=== PATIENT | male | born 1955 | race Caucasian/White ===

== ENCOUNTER 2016-12-23 20:38 | Emergency (ER) | payer OTHER ==
[2016-12-23 20:42] VITALS: BP 119/68; PULSE 79; TEMP 97.6; BMI 27.3
[2016-12-23] MEDS ORDERED: AMOXICILLIN 500 MG CAPSULE (FP) PO ONE (21:25)
[2016-12-23] MEDS ORDERED: IBUPROFEN 600 MG TABLET (FP) PO ONE ×2 (21:26→21:28)
[2016-12-23] MEDS ORDERED: AMOX TR/POT CLAV 500MG/125MG TABLETS (FP) ONE (21:28)
--- NOTE | 2016-12-23 21:31 | PDOC ---
History of Present Illness - General Chief Complaint: Ear Problem Stated Complaint: EAR PAIN Time Seen by Provider: 12/23/16 21:05 History Source: Patient Exam Limitations: No Limitations - History of Present Illness Initial Comments: 12/23/16 21:25 61 yr male with left ear pain for one week with drainage today. no fever or chills 12/23/16 21:26 Past History - Past Medical History Allergies/Adverse Reactions: Allergies Allergy/AdvReac Type Severity Reaction Status Date / Time No Known Allergies Allergy Verified 12/23/16 20:42 Home Medications: Ambulatory Orders Simvastatin [Zocor -] 40 mg PO HS 05/23/15 Tamsulosin HCl [Flomax -] 0.4 mg PO DAILY 05/23/15 Docusate Sodium 300 mg PO HS 12/12/15 Hydrocortisone Acetate [Anusol Hc Suppository -] 25 mg RC DAILY #14 supp.rect Amoxicillin - [Amoxicillin 500mg Capsule -] 500 mg PO BID #20 capsule 12/23/16 Ciprofloxacin HCl/Dexameth [Ciprodex Otic Suspension] 4 drop BID #1 bottle Cancer: Yes (PROSTATE) GI Disorders: Yes (GERD) Disorders: Yes (PROSTATE CA) - Surgical History Abdominal Surgery: Yes Cholecystectomy: Yes - Reproductive History Testicular CA: No (prostate) - Immunization History Immunization Up to Date: Yes - Psycho/Social/Smoking Cessation Hx Anxiety: No Suicidal Ideation: No Smoking History: Never smoked Have you smoked in the past 12 months: No Hx Alcohol Use: No Drug/Substance Use Hx: No Substance Use Type: None Hx Substance Use Treatment: No Review of Systems - Review of Systems Able to Perform ROS?: Yes Is the patient limited Georgian proficient: No Constitutional: No: Symptoms Reported HEENTM: Yes: See HPI Respiratory: No: Symptoms reported *Physical Exam - Vital Signs Last Vital Signs Temp Pulse Resp BP Pulse Ox 97.6 F 79 18 119/68 99 12/23/16 20:39 12/23/16 20:39 12/23/16 20:39 12/23/16 20:39 12/23/16 20:39 - Physical Exam General Appearance: Yes: Nourished, Appropriately Dressed HEENT: positive: EOMI, NIA, TM Dull (left with drainage, inflamed canal ). negative: Pharyngeal Erythema, Tonsillar Exudate, Tonsillar Erythema Respiratory/Chest: positive: Lungs Clear, Normal Breath Sounds Cardiovascular: positive: Regular Rhythm, Regular Rate Gastrointestinal/Abdominal: positive: Normal Bowel Sounds, Soft Musculoskeletal: positive: Normal Inspection Extremity: positive: Normal Capillary Refill, Normal Inspection, Normal Range of Motion Integumentary: positive: Normal Color, Dry, Warm Neurologic: positive: Fully Oriented, Alert, Normal Mood/Affect, Normal Response , Motor Strength 5/5 Medical Decision Making - Medical Decision Making 12/23/16 21:27 cc: left ear pain with drainage one week pain no fever or chills on flomax for prostate cancer (finished radiation treatment) will prescribe amox and ciprodex drops 12/23/16 21:28 *DC/Admit/Observation/Transfer Diagnosis at time of Disposition: Acute otitis media Qualifiers: Otitis media type: suppurative Laterality: left Recurrence: not specified as recurrent Spontaneous tympanic membrane rupture: with spontaneous rupture Qualified Code(s): H66.012 - Acute suppurative otitis media with spontaneous rupture of ear drum, left ear - Discharge Dispostion Disposition: HOME Condition at time of disposition: Good - Prescriptions Prescriptions: Amoxicillin - [Amoxicillin 500mg Capsule -] 500 mg PO BID #20 capsule Ciprofloxacin HCl/Dexameth [Ciprodex Otic Suspension] 4 drop BID #1 bottle - Patient Instructions Additional Instructions: follow with the ENT doctor for follow up next week call Sunday to make appointment use the ear drops as prescribed no water or Qtips in the ears take the Amoxicllin as directed for 10 days take motrin 600mg every 6hrs for pain (over the counter advil or motrin) Return to ER if worse
== END 2016-12-23 21:54 | disposition home or self-care (01) ==
LOC: JERFT 20:38
DX: H66.012 Acute suppurative otitis media with spontaneous rupture of ear drum, left ear (principal); Z85.46 Personal history of malignant neoplasm of prostate; K21.9 Gastro-esophageal reflux disease without esophagitis
CPT/HCPCS: 99281-25

== ENCOUNTER 2017-03-06 20:29 | Emergency (ER) | payer OTHER ==
--- NOTE | 2017-03-06 20:51 | PDOC ---
Rapid Medical Evaluation Time Seen by Provider: 03/06/17 20:43 Medical Evaluation: Allergies Allergy/AdvReac Type Severity Reaction Status Date / Time No Known Allergies Allergy Verified 12/23/16 20:42 03/06/17 20:47 I have performed a brief in-person evaluation of this patient. ([employer] [facility] ) o The patient presents with a chief complaint of: Headache, Pain to the frontal sinuses. o Pertinent physical exam findings: + Frontal sinus pressure and pain. o I have ordered the following: Evaluation in fast track o The patient will proceed to the ED for further evaluation.
[2017-03-06 20:52] VITALS: BP 125/69; PULSE 95; TEMP 98.3; BMI 24.6
--- NOTE | 2017-03-06 23:11 | PDOC ---
History of Present Illness - General History Source: Patient Exam Limitations: No Limitations - History of Present Illness Initial Comments: 61 yo M with a PMHx of prostate CA (5 years ago) presents with persistent frontal headache for one month. Patient is portuguese speaking. Patient reports taking Flonase with no alleviation of headache. Patient denies weakness, paresthesias, and dizziness. Patient denies chest pain, palpitations and lightheadedness. Patient denies fevers, chills, nausea, vomiting and diarrhea. Legal Practice Manager phone #[phone] Surgical Hx: cholecystectomy, knee surgery, removal of prostate Allergies: NKDA <Shannan Nation - Last Filed: 03/06/17 23:12> <Dayna Hammer - Last Filed: 03/06/17 23:42> - General Chief Complaint: Headache Stated Complaint: HEADACHE Time Seen by Provider: 03/06/17 20:43 Past History <Shannan Nation - Last Filed: 03/06/17 23:12> - Past Medical History Cancer: Yes (PROSTATE) GI Disorders: Yes (GERD) Disorders: Yes (PROSTATE CA) - Surgical History Abdominal Surgery: Yes Cholecystectomy: Yes - Reproductive History Testicular CA: No (prostate) - Immunization History Immunization Up to Date: Yes - Psycho/Social/Smoking Cessation Hx Anxiety: No Suicidal Ideation: No Smoking History: Never smoked Have you smoked in the past 12 months: No Hx Alcohol Use: No Drug/Substance Use Hx: No Substance Use Type: None Hx Substance Use Treatment: No <Dayna Hammer - Last Filed: 03/06/17 23:42> - Past Medical History Allergies/Adverse Reactions: Allergies Allergy/AdvReac Type Severity Reaction Status Date / Time No Known Allergies Allergy Verified 12/23/16 20:42 Home Medications: Ambulatory Orders Simvastatin [Zocor -] 40 mg PO HS 05/23/15 Tamsulosin HCl [Flomax -] 0.4 mg PO DAILY 05/23/15 Docusate Sodium 300 mg PO HS 12/12/15 Hydrocortisone Acetate [Anusol Hc Suppository -] 25 mg RC DAILY #14 supp.rect Amoxicillin - [Amoxicillin 500mg Capsule -] 500 mg PO BID #20 capsule 12/23/16 Ciprofloxacin HCl/Dexameth [Ciprodex Otic Suspension] 4 drop BID #1 bottle Loratadine [Claritin -] 10 mg PO DAILY #14 tablet 03/06/17 Methylprednisolone [Medrol Dose Pérez] 4 mg PO ASDIR #21 tablet 03/06/17 Review of Systems - Review of Systems Able to Perform ROS?: Yes Comments:: CONSTITUTIONAL: Absent: fever, no chills, no fatigue EYES: Absent: visual changes ENT: Absent: ear pain, no sore throat CARDIOVASCULAR: Absent: chest pain, no palpitations RESPIRATORY: Absent: cough, no SOB GI: Absent: abdominal pain, no nausea, no vomiting, no constipation, no diarrhea GENITOURINARY: Absent: dysuria, no frequency, no hematuria MUSKULOSKELETAL: Absent: back pain, no arthralgia, no myalgia SKIN: Absent: rash NEURO: +headache <Shannan Nation - Last Filed: 03/06/17 23:12> *Physical Exam - Vital Signs Last Vital Signs Temp Pulse Resp BP Pulse Ox 98.3 F 95 H 19 125/69 97 03/06/17 20:45 03/06/17 20:45 03/06/17 20:45 03/06/17 20:45 03/06/17 20:45 - Physical Exam Comments: GENERAL: Well-appearing, well-nourished. No apparent distress. HEENT: Normocephalic, atraumatic. PERRL, EOM intact. CARDIOVASCULAR: Normal S1, S2. Regular rate and rhythm. PULMONARY: Clear to auscultation bilaterally. ABDOMEN: Soft, non-distended, non-tender. EXTREMITIES: Normal ROM in all four extremities. No gross deformities. SKIN: Warm, dry. No rash NEUROLOGICAL: No focal neurological deficits. <Shannan Nation - Last Filed: 03/06/17 23:12> - Vital Signs Last Vital Signs Temp Pulse Resp BP Pulse Ox 98.3 F 95 H 19 125/69 97 03/06/17 20:45 03/06/17 20:45 03/06/17 20:45 03/06/17 20:45 03/06/17 20:45 <Dayna Hammer - Last Filed: 03/06/17 23:42> ED Treatment Course - RADIOLOGY Radiology Studies Ordered: Category Date Time Status HEAD CT WITHOUT CONTRAST [CT] Stat CT Scan 03/06/17 22:[address] W/O CONTRAST [CT] Stat CT Scan 03/06/17 22:32 Taken <Dayna Hammer - Last Filed: 03/06/17 23:42> Medical Decision Making - Medical Decision Making 03/06/17 23:22 61-year-old male presents with persistent frontal headache for at least a month. He has been taking medications for a sinusitis without relief. He does not have fevers or chills, no significant nasal congestion appreciated. no focal neuro deficits but he does have a history of prostate cancer ct scan of head ++left sinusitis IMP sinusitis -recommend nasal saline,steroids ,ENT follow up <Dayna Hammer - Last Filed: 03/06/17 23:42> *DC/Admit/Observation/Transfer - Attestations Scribe Attestion: Documentation prepared by Shannan Nation, acting as medical economics consultant for Dayna Hammer MD/DO. <Shannan Nation - Last Filed: 03/06/17 23:12> <Dayna Hammer - Last Filed: 03/06/17 23:42> Diagnosis at time of Disposition: Sinusitis Qualifiers: Sinusitis location: frontal Chronicity: subacute Qualified Code(s): J01.10 - Acute frontal sinusitis, unspecified - Discharge Dispostion Disposition: HOME Condition at time of disposition: Stable - Prescriptions Prescriptions: Loratadine [Claritin -] 10 mg PO DAILY #14 tablet Methylprednisolone [Medrol Dose Pérez] 4 mg PO ASDIR #21 tablet - Referrals Referrals: Barney Gibbons MD [Primary Care Provider] - Familia Burgos MD [Staff Physician] - Kamari Fu MD [Staff Physician] - - Patient Instructions Printed Discharge Instructions: DI for Sinusitis, DI for Sinus Headache Additional Instructions: please oyster picker your medications at the [facility] Follow up with environmental management specialist Print Language: NEPALESE
== END 2017-03-06 23:45 | disposition home or self-care (01) ==
LOC: JER 20:29 → JERFT 20:29 → JER 23:45
DX: J01.10 Acute frontal sinusitis, unspecified (principal); Z85.46 Personal history of malignant neoplasm of prostate; K21.9 Gastro-esophageal reflux disease without esophagitis
CPT/HCPCS: 70450-TC; 70486-TC; 99281-25

== ENCOUNTER 2018-11-07 06:59 | Emergency (ER) | payer OTHER ==
[2018-11-07 07:38] VITALS: BP 115/67; BMI 28.5
[2018-11-07] MEDS ORDERED: ACETAMINOPHEN 325 MG TABLET (FP) PO ONE (07:54)
[2018-11-07] MEDS ORDERED: ACETAMINOPHEN 325 MG TABLET (FP) ONE (08:02)
--- NOTE | 2018-11-07 08:07 | PDOC ---
History of Present Illness <Nadira Manning - Last Filed: 11/07/18 08:55> - General History Source: Patient Exam Limitations: Language Barrier <Devora,Jil - Last Filed: 11/07/18 09:03> - General Chief Complaint: Cold Symptoms Stated Complaint: FEVER/SORE THROAT Time Seen by Provider: 11/07/18 07:40 Past History <Nadira Manning Kerricarlos - Last Filed: 11/07/18 08:55> - Past Medical History Cancer: Yes (PROSTATE) COPD: No GI Disorders: Yes (GERD) Disorders: Yes (PROSTATE CA) - Surgical History Abdominal Surgery: Yes Cholecystectomy: Yes - Reproductive History Testicular CA: No (prostate) - Immunization History Immunization Up to Date: Yes - Suicide/Smoking/Psychosocial Hx Smoking History: Never smoked Have you smoked in the past 12 months: No Information on smoking cessation initiated: No Hx Alcohol Use: No Drug/Substance Use Hx: No Substance Use Type: None Hx Substance Use Treatment: No <Jil Lozoya - Last Filed: 11/07/18 09:03> - Past Medical History Allergies/Adverse Reactions: Allergies Allergy/AdvReac Type Severity Reaction Status Date / Time No Known Allergies Allergy Verified 12/23/16 20:42 Home Medications: Ambulatory Orders Simvastatin [Zocor -] 40 mg PO HS 05/23/15 Tamsulosin HCl [Flomax -] 0.4 mg PO DAILY 05/23/15 Docusate Sodium 300 mg PO HS 12/12/15 Hydrocortisone Acetate [Anusol Hc Suppository -] 25 mg RC DAILY #14 supp.rect Amoxicillin - [Amoxicillin 500mg Capsule -] 500 mg PO BID #20 capsule 12/23/16 Ciprofloxacin HCl/Dexameth [Ciprodex Otic Suspension] 4 drop BID #1 bottle Loratadine [Claritin -] 10 mg PO DAILY #14 tablet 03/06/17 Methylprednisolone [Medrol Dose Pérez] 4 mg PO ASDIR #21 tablet 03/06/17 Oseltamivir Phosphate [Tamiflu] 75 mg PO BID #10 capsule 11/07/18 *Physical Exam - Vital Signs Last Vital Signs Temp Pulse Resp BP Pulse Ox 101.1 F H 106 H 16 115/67 96 11/07/18 07:33 11/07/18 07:33 11/07/18 07:33 11/07/18 07:33 11/07/18 07:33 <Nadira Manning - Last Filed: 11/07/18 08:55> - Vital Signs Last Vital Signs Temp Pulse Resp BP Pulse Ox 101.1 F H 106 H 16 115/67 96 11/07/18 07:33 11/07/18 07:33 11/07/18 07:33 11/07/18 07:33 11/07/18 07:33 - Physical Exam General Appearance: No: Apparent Distress HEENT: positive: Pharynx Normal. negative: Sinus Tenderness Respiratory/Chest: positive: Lungs Clear, Normal Breath Sounds. negative: Respiratory Distress Cardiovascular: positive: Regular Rhythm, Regular Rate, S1, S2. negative: Murmur Gastrointestinal/Abdominal: positive: Normal Bowel Sounds, Soft. negative: Tender, Distended, Guarding, Rebound Integumentary: positive: Normal Color Neurologic: positive: Fully Oriented, Alert, Normal Mood/Affect <Jil Lozoya - Last Filed: 11/07/18 09:03> Moderate Sedation - Procedure Monitoring Vital Signs: Procedure Monitoring Vital Signs Temperature 101.1 F H 11/07/18 07:33 Pulse Rate 106 H 11/07/18 07:33 Respiratory Rate 16 11/07/18 07:33 Blood Pressure 115/67 11/07/18 07:33 O2 Sat by Pulse Oximetry (%) 96 11/07/18 07:33 <Nadira Manning - Last Filed: 11/07/18 08:55> - Procedure Monitoring Vital Signs: Procedure Monitoring Vital Signs Temperature 101.1 F H 11/07/18 07:33 Pulse Rate 106 H 11/07/18 07:33 Respiratory Rate 16 11/07/18 07:33 Blood Pressure 115/67 11/07/18 07:33 O2 Sat by Pulse Oximetry (%) 96 11/07/18 07:33 <Jil Lozoya - Last Filed: 11/07/18 09:03> ED Treatment Course - Medications Given in the ED: ED Medications Discontinued Medications Generic Name Dose Route Start Last Admin Trade Name Freq PRN Reason Stop Dose Admin Acetaminophen 650 mg 11/07/18 07:54 11/07/18 08:04 Tylenol - PO 11/07/18 07:55 650 mg ONCE ONE Administration <Nadira Manning - Last Filed: 11/07/18 08:55> Medical Decision Making - Medical Decision Making The patient was seen and evaluated in conjunction with midlevel provider under my direct supervision, ancillary studies were reviewed. I agree with the plan as outlined by Jil Lozoya HPI, workup/dispo as outlined. VS notable for fever and tachycardia. repeat normalized, reassuring. influenza positive, given age, and borderline time frame 48-72 hr, treat with tamiflu x 5 days. precautions for worsening respiratory symptoms, infection return sooner, in case of complications. 11/07/18 08:55 11/07/18 08:56 <Nadira Manning - Last Filed: 11/07/18 08:55> - Medical Decision Making 62 y/o M hx of prostate CA (dx 8 years ago, s/p XRT, TURP, currently in remission) presents with fever, dry cough, body aches and post-tussive emesis x 3 days along with mild nasal congestion and rhinorrhea. Patient's also here with similar symptoms; mentions his got sick first. Denies sob, cp, abd pain. Had some diarrhea few days ago, but not having currently. Consider viral URI/influenza Plan: Tylenol, Flu swab 11/07/18 08:04 Patient flu positive Patient in 72 hr window; given age and history, will treat with Tamiflu Patient appears well Stable for dc 11/07/18 09:00 <Jil Lozoya - Last Filed: 11/07/18 09:03> *DC/Admit/Observation/Transfer <Nadira Manning - Last Filed: 11/07/18 08:55> - Discharge Dispostion Decision to Admit order: No <Jil Lozoya - Last Filed: 11/07/18 09:03> Diagnosis at time of Disposition: Influenza A - Discharge Dispostion Disposition: HOME Condition at time of disposition: Stable - Prescriptions Prescriptions: Oseltamivir Phosphate [Tamiflu] 75 mg PO BID #10 capsule - Referrals Referrals: Yolis Hutchison MD [Primary Care Provider] - 2 Days - Patient Instructions Printed Discharge Instructions: DI for Influenza -- Adult Additional Instructions: Thank you for choosing [facility]. It was a pleasure taking care of you. You were found to have the flu Take Tamiflu as instructed Take Tylenol as needed for fever Recommend rest, hydration Follow-up with your primary care doctor in 1 week. Return to the Emergency Department if your symptoms worsen or persist or have other concerning symptoms. Regan por elegir el [facility]. Fue un placer cuidar de ti. Te encontraron con la gripe [place] Tamiflu ernesto se le indique [place] Tylenol ernesto sea necesario para la fiebre Recomendar reposo, hidratacin. Seguimiento con mosqueda mdico de atencin primaria en 1 semana. Regrese al Departamento de Emergencias si adam sntomas empeoran o persisten o si tiene otros sntomas relacionados. Print Language: GREENLANDIC - Post Discharge Activity
[2018-11-07] MEDS ORDERED: OSELTAMIVIR PHOSPHATE 75 MG CAPSULE PO ONE (08:53)
[2018-11-07] MEDS ORDERED: OSELTAMIVIR PHOSPHATE 75 MG CAPSULE ONE (09:00)
[2018-11-07 09:06] VITALS: PULSE 91; TEMP 99.2
== END 2018-11-07 09:37 | disposition home or self-care (01) ==
LOC: JER 06:59
DX: J09.X2 Influenza due to identified novel influenza A virus with other respiratory manifestations (principal); K21.9 Gastro-esophageal reflux disease without esophagitis; Z85.46 Personal history of malignant neoplasm of prostate
CPT/HCPCS: 87804; 99281-25

== ENCOUNTER 2019-06-24 21:21 | Emergency (ER) | payer OTHER ==
[2019-06-24] MEDS ORDERED: DIPHTH,PERTUSS(ACELL),TET 0.5 ML DISP.SYRIN IM ONE (21:33)
--- NOTE | 2019-06-24 21:33 | PDOC ---
Rapid Medical Evaluation Time Seen by Provider: 06/24/19 21:31 Medical Evaluation: Allergies Allergy/AdvReac Type Severity Reaction Status Date / Time No Known Allergies Allergy Verified 12/23/16 20:42 06/24/19 21:31 CC: lac to left hand. RHD PE: superficial laceration to left thenar web space Orders: Td Patient to proceed to ER for evaluation. Discharge Disposition - Diagnosis Laceration - Referrals Referrals: Yolis Hutchison MD [Primary Care Provider] - - Patient Instructions - Post Discharge Activity
[2019-06-24 21:38] VITALS: BP 130/60; PULSE 75; TEMP 98.3; BMI 28.1
== END 2019-06-24 23:30 | disposition left against medical advice (07) ==
LOC: JERFT 21:21 → JER 21:21
DX: S61.412A Laceration without foreign body of left hand, initial encounter (principal)
CPT/HCPCS: 99281-25

== ENCOUNTER 2021-09-08 14:59 | Emergency (ER) | payer OTHER ==
[2021-09-08 15:23] VITALS: TEMP 98.2; BMI 27.0
[2021-09-08] MEDS ORDERED: MAG HYDROX/AL HYDROX/SIMETH 30 ML UNIT-DOSE CUP PO ONE (15:57)
[2021-09-08] MEDS ORDERED: FAMOTIDINE 20 MG/50 ML IVPB 20 MG/50 ML MG IVPB ONE ×2 (15:57→16:06)
[2021-09-08] MEDS ORDERED: MAG HYDROX/AL HYDROX/SIMETH 30 ML UNIT-DOSE CUP ONE (16:06)
[2021-09-08 16:55] LABS: BASO % 0.6 % (0-2.0); EOS % 2.8 % (0-4.5); HEMOGLOBIN 12.4 GM/dL (11.7-16.9); LYMPH % 26.8 % (8-40); MCH 29.8 pg (25.7-33.7); MCHC 34.5 g/dl (32.0-35.9); MEAN CELL VOLUME 86.4 fl (80-96); MEAN PLT VOLUME 7.6 fl (7.5-11.1); MONO % 6.6 % (3.8-10.2); NEUT % 63.2 % (42.8-82.8); PLATELET COUNT 228 10^3/uL (134-434); RBC 4.17 M/mm3 (4.00-5.60); RDW 14.3 % (11.9-15.9)
[2021-09-08 17:15] LABS: CHLORIDE 107 mmol/L (98-107); SODIUM 144 mmol/L (136-145)
[2021-09-08 17:17] LABS: BLOOD UREA NITROGEN 16.6 mg/dL (7-18); CALCIUM 8.8 mg/dL (8.5-10.1); LIPASE 277 U/L (73-393)
[2021-09-08 17:18] LABS: ALBUMIN 3.9 g/dl (3.4-5.0); GLUCOSE,RANDOM 87 mg/dL (74-106); MAGNESIUM 2.5 mg/dL (1.8-2.4)
[2021-09-08 17:20] LABS: CREATININE 0.9 mg/dL (0.55-1.3)
[2021-09-08 17:21] LABS: SGOT/AST 14 U/L (15-37); SGPT/ALT 27 U/L (13-61)
[2021-09-08 17:22] LABS: BILIRUBIN,TOTAL 0.4 mg/dL (0.2-1); TOT PROT 7.1 g/dl (6.4-8.2)
[2021-09-08 17:23] LABS: ALK PHOS 138 U/L (45-117)
[2021-09-08 18:39] LABS: ANION GAP 6 MMOL/L (8-16); CO2 31 mmol/L (21-32)
[2021-09-08] MEDS ORDERED: PANTOPRAZOLE SODIUM 40 MG VIAL IVPUSH ONE (19:27)
[2021-09-08] MEDS ORDERED: PANTOPRAZOLE SODIUM 40 MG/100 ML BAG IVPB ONE (19:37)
[2021-09-08 20:28] VITALS: BP 121/76; PULSE 79
== END 2021-09-08 20:30 | disposition home or self-care (01) ==
LOC: JER 14:59
PROC: 3E033GC Introduction of Other Therapeutic Substance into Peripheral Vein, Percutaneous Approach (ICD-10-PCS; principal; 2021-09-08)
DX: R07.9 Chest pain, unspecified (principal)
CPT/HCPCS: 36415; 71045-TC-FY; 80053; 82550; 83690; 83735; 84484; 85025; 93005; 93010; 99285-25; C9803; U0003; U0005

== ENCOUNTER 2022-02-23 07:25 | Emergency (ER) | payer OTHER ==
[2022-02-23] MEDS ORDERED: SODIUM CHLORIDE 0.9% 500 ML INFUS.BAG IV ONE (08:11)
[2022-02-23] MEDS ORDERED: ACETAMINOPHEN 1000 MG/100 ML BAG IVPB ONE (08:11)
[2022-02-23 08:29] VITALS: BP 120/67; PULSE 77; TEMP 98.1; BMI 27.3
[2022-02-23] MEDS ORDERED: ACETAMINOPHEN INJECTION 100 ML IVPB ONE (08:49)
[2022-02-23 10:37] LABS: BASO % 0.5 % (0-2.0); EOS % 1.4 % (0-4.5); HEMOGLOBIN 12.2 GM/dL (11.7-16.9); LYMPH % 15.9 % (8-40); MCH 30.2 pg (25.7-33.7); MCHC 33.8 g/dl (32.0-35.9); MEAN CELL VOLUME 89.2 fl (80-96); MONO % 8.4 % (3.8-10.2); NEUT % 73.8 % (42.8-82.8); PLATELET COUNT 190 10^3/uL (134-434); RBC 4.04 M/mm3 (4.00-5.60); RDW 13.7 % (11.9-15.9); WHITE BLOOD COUNT 7.4 K/mm3 (4.0-10.0)
[2022-02-23 11:02] LABS: ALBUMIN 3.9 g/dl (3.4-5.0); BLOOD UREA NITROGEN 20.4 mg/dL (7-18); CALCIUM 8.9 mg/dL (8.5-10.1)
[2022-02-23 11:06] LABS: CREATININE 0.8 mg/dL (0.55-1.3)
[2022-02-23 11:07] LABS: BILIRUBIN,TOTAL 0.4 mg/dL (0.2-1); TOT PROT 6.7 g/dl (6.4-8.2)
== END 2022-02-23 12:05 | disposition home or self-care (01) ==
LOC: JER 07:25 → JERFT 07:25
PROC: 3E0333Z Introduction of Anti-inflammatory into Peripheral Vein, Percutaneous Approach (ICD-10-PCS; principal; 2022-02-23)
DX: L04.0 Acute lymphadenitis of face, head and neck (principal)
CPT/HCPCS: 36415; 70450-TC; 80053; 85025; 99284-25

== ENCOUNTER 2022-08-05 09:11 | Emergency (ER) | payer OTHER ==
[2022-08-05 09:32] VITALS: BP 122/70; PULSE 73; RESP 18; TEMP 98.1; BMI 26.6
== END 2022-08-05 13:31 | disposition home or self-care (01) ==
LOC: JER 09:11
DX: J20.9 Acute bronchitis, unspecified (principal)
CPT/HCPCS: 0241U-QW; 71046-TC-FY; 99284-25

== ENCOUNTER 2022-09-29 04:23 | Day surgery (SDC) | payer OTHER ==
[~2022-09-29 04:23] MED LIST: BUPIVACAINE HCL/PF 0.75% 10 ML VIAL PNB ONE; LIDOCAINE 1% P/F 10 MG/ML VIAL PNB ONE
[2022-09-29 10:14] VITALS: RESP 18; BMI 27.4
[2022-09-29] MEDS ORDERED: BUPIVACAINE HCL/PF 0.75% 10 ML VIAL PNB ONE (12:21)
[2022-09-29] MEDS ORDERED: LIDOCAINE 1% P/F 10 MG/ML VIAL PNB ONE (12:21)
[2022-09-29 13:50] VITALS: BP 108/53; PULSE 60; TEMP 97.9
== END 2022-09-29 13:15 | disposition home or self-care (01) ==
LOC: JASU-SURG 04:23
PROVIDERS: ATTEND Pain Medicine Pain Medicine
PROC: BR16YZZ Fluoroscopy of Lumbar Facet Joint(s) using Other Contrast (ICD-10-PCS; 2022-09-29)
PROC: 3E0T3BZ Introduction of Anesthetic Agent into Peripheral Nerves and Plexi, Percutaneous Approach (ICD-10-PCS; principal; 2022-09-29 11:30)
DX: M47.816 Spondylosis without myelopathy or radiculopathy, lumbar region (principal)
CPT/HCPCS: 76000-TC-FY

== ENCOUNTER 2022-12-08 04:05 | Day surgery (SDC) | payer OTHER ==
[2022-12-05 18:33] VITALS: BMI 27.4
[2022-12-08] MEDS ORDERED: BUPIVACAINE HCL/PF 0.75% 10 ML VIAL ONE (07:30)
[2022-12-08] MEDS ORDERED: LIDOCAINE HCL/PF 1% SDV 5ML VIAL ONE (07:30)
[2022-12-08] MEDS ORDERED: LIDOCAINE HCL 1% PRESERVATIVE FREE - 30ML VIAL IJ ONE (14:32)
[2022-12-08] MEDS ORDERED: BUPIVACAINE HCL/PF 0.75% 10 ML VIAL PNB ONE (14:33)
[2022-12-08 16:59] VITALS: BP 106/60; PULSE 63; RESP 18; TEMP 98.2
== END 2022-12-08 15:30 | disposition home or self-care (01) ==
LOC: JASU-SURG 04:05
PROVIDERS: ATTEND Pain Medicine Pain Medicine
PROC: 3E0T33Z Introduction of Anti-inflammatory into Peripheral Nerves and Plexi, Percutaneous Approach (ICD-10-PCS; 2022-12-08)
PROC: BR16YZZ Fluoroscopy of Lumbar Facet Joint(s) using Other Contrast (ICD-10-PCS; 2022-12-08)
PROC: 3E0T3BZ Introduction of Anesthetic Agent into Peripheral Nerves and Plexi, Percutaneous Approach (ICD-10-PCS; principal; 2022-12-08 15:00)
DX: M47.816 Spondylosis without myelopathy or radiculopathy, lumbar region (principal)
CPT/HCPCS: 76000-TC-FY

== ENCOUNTER 2022-12-09 09:06 | Emergency (ER) | payer OTHER ==
[2022-12-09 09:15] VITALS: BP 118/68; RESP 16; TEMP 97; BMI 27.0
[2022-12-09] MEDS ORDERED: ACETAMINOPHEN 1000 MG/100 ML BAG IVPB ONE (09:52)
[2022-12-09] MEDS ORDERED: LIDOCAINE 5% TOPICAL PATCH TP ONE (09:52)
[2022-12-09] MEDS ORDERED: LIDOCAINE 5% TOPICAL PATCH ONE (09:58)
[2022-12-09] MEDS ORDERED: ACETAMINOPHEN INJECTION 100 ML IVPB ONE (09:58)
[2022-12-09 11:01] LABS: BASO % 0.6 % (0-2.0); EOS % 1.4 % (0-4.5); HEMATOCRIT 36.4 % (35.4-49); HEMOGLOBIN 12.6 GM/dL (11.7-16.9); LYMPH % 21.2 % (8-40); MCH 30.1 pg (25.7-33.7); MCHC 34.5 g/dl (32.0-35.9); MEAN CELL VOLUME 87.2 fl (80-96); MEAN PLT VOLUME 7.9 fl (7.5-11.1); MONO % 5.3 % (3.8-10.2); NEUT % 71.5 % (42.8-82.8); PLATELET COUNT 200 10^3/uL (134-434); RBC 4.18 M/mm3 (4.00-5.60); RDW 13.4 % (11.9-15.9); WHITE BLOOD COUNT 6.8 K/mm3 (4.0-10.0)
[2022-12-09 11:21] LABS: ALBUMIN 3.6 g/dl (3.4-5.0); BLOOD UREA NITROGEN 23.2 mg/dL (7-18); CALCIUM 8.6 mg/dL (8.5-10.1)
[2022-12-09 11:24] LABS: CREATININE 0.7 mg/dL (0.55-1.3)
[2022-12-09 11:26] LABS: BILIRUBIN,TOTAL 0.4 mg/dL (0.2-1); TOT PROT 6.7 g/dl (6.4-8.2)
[2022-12-09 14:06] VITALS: PULSE 89
== END 2022-12-09 14:09 | disposition home or self-care (01) ==
LOC: JER 09:06
PROC: 3E033NZ Introduction of Analgesics, Hypnotics, Sedatives into Peripheral Vein, Percutaneous Approach (ICD-10-PCS; principal; 2022-12-09)
DX: M54.2 Cervicalgia (principal); R07.9 Chest pain, unspecified
CPT/HCPCS: 36415; 71046-TC-FY; 80053; 84484; 85025; 93005; 93010; 99284-25

== ENCOUNTER 2023-05-06 06:52 | Emergency (ER) | payer OTHER ==
[2023-05-06 07:01] VITALS: BMI 29.6
[2023-05-06] MEDS ORDERED: ONDANSETRON 4 MG/2 ML VIAL IVPUSH ONE (07:59)
[2023-05-06] MEDS ORDERED: ACETAMINOPHEN 1000 MG/100 ML BAG IVPB ONE (07:59)
[2023-05-06] MEDS ORDERED: MAG HYDROX/AL HYDROX/SIMETH 30 ML UNIT-DOSE CUP PO ONE (07:59)
[2023-05-06] MEDS ORDERED: SODIUM CHLORIDE 0.9% 500 ML INFUS.BAG IV ONE (07:59)
[2023-05-06] MEDS ORDERED: FAMOTIDINE 20 MG/50 ML IVPB 20 MG/50 ML MG IVPB ONE ×2 (07:59→08:41)
[2023-05-06] MEDS ORDERED: SUCRALFATE 1 GM TABLET (FP) PO ONE (08:16)
[2023-05-06] MEDS ORDERED: SUCRALFATE 1 GM TABLET (FP) ONE (08:40)
[2023-05-06] MEDS ORDERED: ONDANSETRON 4 MG/2 ML VIAL ONE (08:41)
[2023-05-06] MEDS ORDERED: ACETAMINOPHEN INJECTION 100 ML IVPB ONE (08:41)
[2023-05-06] MEDS ORDERED: MAG HYDROX/AL HYDROX/SIMETH 30 ML UNIT-DOSE CUP ONE (08:41)
[2023-05-06 09:21] VITALS: PULSE 80
[2023-05-06 09:32] LABS: BASO % 0.6 % (0-2.0); EOS % 0.8 % (0-4.5); HEMATOCRIT 38.5 % (35.4-49); HEMOGLOBIN 12.9 GM/dL (11.7-16.9); LYMPH % 20.7 % (8-40); MCH 29.8 pg (25.7-33.7); MCHC 33.5 g/dl (32.0-35.9); MEAN CELL VOLUME 88.9 fl (80-96); MONO % 6.6 % (3.8-10.2); NEUT % 71.3 % (42.8-82.8); PLATELET COUNT 216 10^3/uL (134-434); RBC 4.32 M/mm3 (4.00-5.60); RDW 13.7 % (11.9-15.9); WHITE BLOOD COUNT 6.6 K/mm3 (4.0-10.0)
[2023-05-06 09:51] LABS: POTASSIUM 4.3 mmol/L (3.5-5.1)
[2023-05-06 09:52] LABS: CALCIUM 8.6 mg/dL (8.5-10.1)
[2023-05-06 09:53] LABS: ALBUMIN 4.2 g/dl (3.4-5.0); BLOOD UREA NITROGEN 13.8 mg/dL (7-18); MAGNESIUM 2.8 mg/dL (1.8-2.4)
[2023-05-06 09:56] LABS: CREATININE 0.8 mg/dL (0.55-1.3)
[2023-05-06 09:58] LABS: BILIRUBIN,TOTAL 0.7 mg/dL (0.2-1); TOT PROT 7.1 g/dl (6.4-8.2)
[2023-05-06 10:59] VITALS: BP 107/60; RESP 16; TEMP 98.7
== END 2023-05-06 11:00 | disposition home or self-care (01) ==
LOC: JER 06:52
PROC: 3E033GC Introduction of Other Therapeutic Substance into Peripheral Vein, Percutaneous Approach (ICD-10-PCS; principal; 2023-05-06)
PROC: 3E033NZ Introduction of Analgesics, Hypnotics, Sedatives into Peripheral Vein, Percutaneous Approach (ICD-10-PCS; 2023-05-06)
PROC: 3E033GC Introduction of Other Therapeutic Substance into Peripheral Vein, Percutaneous Approach (ICD-10-PCS; 2023-05-06)
DX: R10.13 Epigastric pain (principal); R11.2 Nausea with vomiting, unspecified; R19.7 Diarrhea, unspecified
CPT/HCPCS: 36415; 71045-TC-FY; 80053; 83690; 83735; 84484; 85025; 93005; 93010; 99285-25

== ENCOUNTER 2023-08-30 08:38 | Emergency (ER) | payer OTHER ==
[2023-08-30 09:28] VITALS: BP 103/53; PULSE 75; RESP 17; TEMP 97.9; BMI 27.3
[2023-08-30] MEDS ORDERED: ACETAMINOPHEN 500 MG TABLET (FP) PO ONE (09:47)
[2023-08-30] MEDS ORDERED: ACETAMINOPHEN 500 MG TABLET (FP) ONE (10:22)
== END 2023-08-30 10:57 | disposition home or self-care (01) ==
LOC: JERFT 08:38
DX: R51.9 Headache, unspecified (principal); M79.10 Myalgia, unspecified site; R11.0 Nausea; B34.9 Viral infection, unspecified; Z20.822 Contact with and (suspected) exposure to COVID-19
CPT/HCPCS: 0241U-QW; 99283-25

== ENCOUNTER 2023-11-07 23:25 | Emergency (ER) | payer OTHER ==
[2023-11-07 23:35] VITALS: BP 110/50; PULSE 84; RESP 16; TEMP 98; BMI 30.9
[2023-11-08] MEDS ORDERED: KETOROLAC TROMETHAMINE 15 MG/ML VIAL ONE (00:54)
[2023-11-08] MEDS: KETOROLAC TROMETHAMINE 15 MG/ML VIAL IVPUSH ONE (00:59)
[2023-11-08] MEDS: LACTATED RINGERS SOLUTION 1000 ML INFUS.BAG IV ONE (00:59)
== END 2023-11-08 02:28 | disposition home or self-care (01) ==
LOC: JER 23:25
PROC: 3E0333Z Introduction of Anti-inflammatory into Peripheral Vein, Percutaneous Approach (ICD-10-PCS; principal; 2023-11-08)
DX: R51.9 Headache, unspecified (principal)
CPT/HCPCS: 99284-25

== ENCOUNTER 2024-04-14 15:46 | Emergency (ER) | payer OTHER ==
[2024-04-14 15:51] VITALS: TEMP 97.9; BMI 26.6
[2024-04-14] MEDS ORDERED: METOPROLOL TARTRATE 5 MG/5 ML VIAL ONE ×2 (16:06→16:10)
[2024-04-14] MEDS ORDERED: MAGNESIUM SULFATE IN WATER 4 GM/100 ML IVPB IVPB ONE (16:09)
[2024-04-14] MEDS ORDERED: LABETALOL HCL 5 MG/1 ML (100MG/20 ML VIAL) IVPUSH ONE (16:12)
[2024-04-14 16:17] LABS: BASO % 0.5 % (0-2.0); EOS % 0.9 % (0-4.5); HEMATOCRIT 38.2 % (35.4-49); HEMOGLOBIN 13.2 GM/dL (11.7-16.9); LYMPH % 16.8 % (8-40); MCH 30.6 pg (25.7-33.7); MCHC 34.6 g/dl (32.0-35.9); MEAN CELL VOLUME 88.5 fl (80-96); MEAN PLT VOLUME 7.8 fl (7.5-11.1); MONO % 5.9 % (3.8-10.2); NEUT % 75.9 % (42.8-82.8); PLATELET COUNT 226 10^3/uL (134-434); RBC 4.32 M/mm3 (4.00-5.60); RDW 13.5 % (11.9-15.9); WHITE BLOOD COUNT 9.8 K/mm3 (4.0-10.0)
[2024-04-14] MEDS ORDERED: ETOMIDATE 20 MG/10 ML VIAL IVPUSH ONE (16:25)
[2024-04-14 16:36] LABS: POTASSIUM 3.6 mmol/L (3.5-5.1)
[2024-04-14 16:38] LABS: ALBUMIN 4.3 g/dl (3.4-5.0); CALCIUM 9.3 mg/dL (8.5-10.1)
[2024-04-14 16:42] LABS: CREATININE 1.1 mg/dL (0.55-1.3)
[2024-04-14 16:43] LABS: BILIRUBIN,TOTAL 0.6 mg/dL (0.2-1)
[2024-04-14] MEDS: SOTALOL HCL 80 MG TABLET (FP) PO ONE (17:00)
[2024-04-14 17:05] LABS: PROTHROMBIN TIME (PATIENT) 11.3 SEC (9.7-13.0)
[2024-04-14 18:28] VITALS: BP 85/65; PULSE 130; RESP 19
== END 2024-04-14 18:00 | disposition short-term general hospital (02) ==
LOC: JER 15:46
PROC: 5A2204Z Restoration of Cardiac Rhythm, Single (ICD-10-PCS; principal; 2024-04-14)
DX: I48.0 Paroxysmal atrial fibrillation (principal); I95.89 Other hypotension; R07.9 Chest pain, unspecified; R42 Dizziness and giddiness; R61 Generalized hyperhidrosis; R53.83 Other fatigue; R11.10 Vomiting, unspecified; R06.00 Dyspnea, unspecified
CPT/HCPCS: 36415; 71045-TC-FY; 80053; 82962; 84484; 85025; 85610; 85730; 93005; 93010; 99291

== ENCOUNTER 2024-04-30 12:43 | Inpatient (IN) | payer OTHER ==
[2024-04-30 13:37] LABS: BASO % 1.4 % (0-2.0); EOS % 1.1 % (0-4.5); HEMOGLOBIN 12.1 GM/dL (11.7-16.9); LYMPH % 17.8 % (8-40); MCH 31.3 pg (25.7-33.7); MCHC 34.5 g/dl (32.0-35.9); MEAN CELL VOLUME 90.8 fl (80-96); MONO % 5.3 % (3.8-10.2); NEUT % 74.4 % (42.8-82.8); PLATELET COUNT 235 10^3/uL (134-434); RBC 3.86 M/mm3 (4.00-5.60); RDW 14.2 % (11.9-15.9)
[2024-04-30] MEDS ORDERED: ACETAMINOPHEN INJECTION 100 ML IVPB ONE (13:38)
[2024-04-30] MEDS ORDERED: ONDANSETRON 4 MG/2 ML VIAL ONE (13:38)
[2024-04-30] MEDS: ONDANSETRON 4 MG/2 ML VIAL IVPB ONE (13:41)
[2024-04-30] MEDS: ACETAMINOPHEN 1000 MG/100 ML BAG IVPB ONE (13:41)
[2024-04-30 13:57] LABS: ALBUMIN 4.2 g/dl (3.4-5.0); BLOOD UREA NITROGEN 15.8 mg/dL (7-18); CALCIUM 9.2 mg/dL (8.5-10.1)
[2024-04-30 14:01] LABS: CREATININE 0.9 mg/dL (0.55-1.3)
[2024-04-30 14:02] LABS: BILIRUBIN,TOTAL 0.5 mg/dL (0.2-1); TOT PROT 7.4 g/dl (6.4-8.2)
[2024-04-30] MEDS: SODIUM CHLORIDE 0.9% 500 ML INFUS.BAG IV ONE (14:05)
[2024-04-30] MEDS ORDERED: METOCLOPRAMIDE HCL INJECTION 10 MG/2 ML VIAL ONE (16:48)
[2024-04-30 21:08] VITALS: BMI 27.4
[2024-05-01] MEDS: APIXABAN 5 MG TABLET PO SCH (00:04)
[2024-05-01 00:57] LABS: POTASSIUM 4.1 mmol/L (3.5-5.1)
[2024-05-01 00:59] LABS: ALBUMIN 3.6 g/dl (3.4-5.0); BLOOD UREA NITROGEN 17.7 mg/dL (7-18); CALCIUM 8.9 mg/dL (8.5-10.1); MAGNESIUM 2.2 mg/dL (1.8-2.4)
[2024-05-01 01:03] LABS: CREATININE 0.9 mg/dL (0.55-1.3); PHOSPHOROUS 3.9 mg/dL (2.5-4.9)
[2024-05-01 01:05] LABS: BILIRUBIN,TOTAL 0.4 mg/dL (0.2-1); TOT PROT 6.5 g/dl (6.4-8.2)
[2024-05-01 07:42] LABS: BASO % 1.2 % (0-2.0); EOS % 2.2 % (0-4.5); HEMATOCRIT 33.2 % (35.4-49); HEMOGLOBIN 11.4 GM/dL (11.7-16.9); LYMPH % 23.6 % (8-40); MCH 31.2 pg (25.7-33.7); MCHC 34.4 g/dl (32.0-35.9); MEAN CELL VOLUME 90.8 fl (80-96); MEAN PLT VOLUME 8.2 fl (7.5-11.1); MONO % 6.8 % (3.8-10.2); NEUT % 66.2 % (42.8-82.8); PLATELET COUNT 209 10^3/uL (134-434); RBC 3.65 M/mm3 (4.00-5.60); RDW 13.8 % (11.9-15.9); WHITE BLOOD COUNT 6.3 K/mm3 (4.0-10.0)
[2024-05-01] MEDS ORDERED: SOTALOL HCL 80 MG TABLET (FP) PO SCH (10:00)
[2024-05-01] MEDS ORDERED: APIXABAN 5 MG TABLET PO SCH (10:00)
[2024-05-01] MEDS: AMIODARONE HCL 200 MG TABLET PO SCH (10:50)
[2024-05-01 13:37] VITALS: BP 130/70; PULSE 70; RESP 18; TEMP 98.3
[2024-05-01] MEDS ORDERED: ROSUVASTATIN CA 5 MG TABLET PO SCH (22:00)
[2024-05-01] MEDS ORDERED: MELATONIN 1 MG TABLET PO SCH (22:00)
== END 2024-05-01 15:59 | disposition home or self-care (01) | DRG 103 ==
LOC: JER 12:43 → JERBED 18:56 → J4W 19:48 → OBSVTOIN 23:25
PROVIDERS: ATTEND Family Medicine
DX: R51.9 Headache, unspecified (principal); I48.19 Other persistent atrial fibrillation; R11.0 Nausea; I10 Essential (primary) hypertension; E78.5 Hyperlipidemia, unspecified; K21.9 Gastro-esophageal reflux disease without esophagitis
CPT/HCPCS: 36415; 70450-TC; 80053; 80299; 82962; 83735; 84100; 84439; 84443; 84484; 85025; 93005; 93010; 99285-25; G0378; J0131